=== PATIENT | male | born 1990 | race Caucasian/White ===

== ENCOUNTER 2021-01-26 19:38 | Emergency (ER) | payer OTHER ==
[2021-01-26 20:09] VITALS: BP 127/80; PULSE 74; TEMP 98.2; BMI 25.1
== END 2021-01-26 20:28 | disposition home or self-care (01) ==
LOC: JER 19:38
DX: Z11.52 Encounter for screening for COVID-19 (principal)
CPT/HCPCS: 99283-25; C9803; U0003; U0005